=== PATIENT | male | born 1935 | race Caucasian/White ===

== ENCOUNTER 2016-04-16 19:20 | Emergency (ER) | payer MEDICARE ==
[2016-04-16 19:32] VITALS: TEMP 97.3; BMI 25.0
--- NOTE | 2016-04-16 19:47 | EDPRACDOC ---
- General Information Chief Complaint: Upper Extremity Injury Stated Complaint: PAIN/SWELLING RT ARM Time Seen by Provider: 04/16/16 19:38 Mode of Arrival: Car Home Medications: Home Medications Ranitidine [Zantac] 20 ml PO HS #600 02/17/16 Cephalexin Monohydrate [Keflex] 500 mg PO Q6H #20 cap 04/16/16 Hydrocodone Bit/Acetaminophen [Hydrocodon-Acetaminophen 5-325] 1 tab PO Q6 PRN # 15 tab 04/16/16 Warfarin Sodium [Coumadin] 1 mg PO DAILY 04/16/16 Allergies/Adverse Reactions: Allergies Allergy/AdvReac Type Severity Reaction Status Date / Time cinoxacin [From Cinobac] Allergy Rash-Genera Verified 04/16/16 19:33 lized ciprofloxacin [From Cipro] Allergy Rash-Genera Verified 04/16/16 19:33 lized ciprofloxacin HCl Allergy Rash-Genera Verified 04/16/16 19:33 [From Cipro] lized doxycycline Allergy Rash-Genera Verified 04/16/16 19:33 lized nitrofurantoin Allergy Rash-Genera Verified 04/16/16 19:33 macrocrystalline lized [From Macrodantin] tamsulosin Allergy Unknown Verified 04/16/16 19:33 trimethoprim [From Proloprim] Allergy Rash-Genera Verified 04/16/16 19:33 lized - History of Present Illness Onset: 3 days HPI: PT COMPLAINS OF SEVERE THROBBING PAIN IN RIGHT WRIST WORSENING X 3 DAYS, STATES "I GOT GOUT", PT HAS HX OF SAME AFFECTING SAME WRIST. PT WENT TO URGENT CARE, STATES THAT HE "GOT HOT AND VOMITED", STATES UC DID AN X-RAY AND TOLD HIM HE HAD A "BLOCKAGE" AND REFERRED HIM TO THE ED. PT STATES NO BM X 3 DAYS. 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 SOLITARY RIGHT KIDNEY. 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 Wilkerson. Nephrectomy.) - Family Medical History Reports: Cancer (Mother: cancer of unknown type), Stroke (Brother), Cardiac Disorders (Father: "circulation problem"). Denies: Hypertension, Diabetes - Social Medical History Smoking Status: Former smoker Social History: Denies: Substance Use Disorder ETOH: None Substance Abuse: None EDM Review of Systems - Review of Systems Constitutional: negative: Chills, Fever Eyes: negative: Blurred Vision, Double Vision Ears: negative: Drainage Throat: negative: Pain Nose: negative: Congestion, Discharge Respiratory: negative: Cough, Shortness of Breath, Wheezing Cardiovascular: negative: Chest Pain, Palpitations Gastrointestinal: Constipation, Nausea, Vomiting. negative: Diarrhea, Pain Genitourinary: negative: Dysuria, Frequency Neurological: negative: Dizziness, Headache, Numbness, Weakness Musculoskeletal: Wrist Integumentary: No Symptoms Reported - Physical Exam Constitutional: Alert (Awake), No apparent distress Oriented to: Time, Person, Place Last recorded Vital Signs: Last Vital Signs Temp 97.3 F L 04/16/16 19:25 Pulse 73 04/16/16 19:25 Resp 20 04/16/16 19:25 BP 172/77 04/16/16 19:25 Pulse Ox 98 04/16/16 19:25 Oxygen Pulse Oxygen Saturation 98 O2 Device Oxygen Flow Rate Fraction of Inspired Oxygen ( FIO2) - HEENT Head: Normal ( normocephalic) Eye Exam: Normal (PERRL, EOMI, Sclera white) Oropharynx: Normal (Pharynx:Moist without exudate,Gums-no swelling) Tympanic Membrane: Normal ENT EAC: Normal TMJ: Normal Nose: No Symptoms Reported (septum midline) Neck: Normal (FROM, trachea at midline) - Respiratory/Cardiovascular Respiratory: Normal - CTA (BBS clear to auscultation without adventitious sounds ) Cardiovascular: Normal (RRR without murmur, gallop or rub) - GI Auscultation: Normal (NABS) Palpation: Normal (Soft,No rebound or guarding, non distended) Tenderness: Non tender Lomas's Sign: Negative - Musculoskeletal Back: Normal (Non-Tender) Extremities: Normal (Normal tone, Pulses 2+ No cyanosis or edema, FROM) - Integumentary Skin: Normal, Warm, Dry Lymphatics: Normal (no adenopathy) - Neurologic Memory Impaired: Normal Motor Function: Normal (Normal tone, Pulses 2+ No cyanosis or edema, FROM) Cranial Nerve: Normal (CN II-X11 intact sensation, strength 5/5) Cerebellar: Normal Mood Description: Normal Perception: Normal ED Wrist Problem Exam Wrist Symptoms: Swelling, Limited ROM, Moderate Tenderness. negative: Deformity Hand Symptoms: Normal. negative: Swelling, Deformity Forearm Symptoms: Normal. negative: Swelling, Deformity Distal Function/Circulation: Normal, Capillary Refill. negative: Motor Deficit , Pulse Deficit, Sensory Deficit - Integumentary Skin: Erythema ED Wrist Problem MDM - Differential Diagnosis Differential Diagnosis: Gout, Rheumatoid, Septic - Re-evaluation Re-evaluation 1 Re-evaluation Time: 20:43 (PAIN IMPROVED) - Results Result Diagrams: 04/16/16 20:40 04/16/16 20:40 Results: 04/16/16 21:13 Laboratory Results - last 24 hr 04/16/16 04/16/16 04/16/16 20:27 20:40 20:40 WBC 8.3 RBC 4.24 L Hgb 13.0 L Hct 39.1 L MCV 92 MCH 30.7 MCHC 33.2 RDW 14.5 Plt Count 117 L MPV 8.0 Neut % (Auto) 79.0 H Lymph % (Auto) 8.2 L [place] % (Auto) 7.7 Eos % (Auto) 4.5 Baso % (Auto) 0.6 Absolute Neuts (auto) 6.56 Absolute Lymphs (auto) 0.66 Sodium 139 Potassium 4.3 Chloride 101 Carbon Dioxide 25 Anion Gap 17 H BUN 36 H Creatinine 2.30 H Estimated GFR (MDRD) 27 L Glucose 126 H Calculated Osmolality 278 Calcium 10.3 H Total Bilirubin 0.8 AST 34 ALT 36 Alkaline Phosphatase 124 Total Protein 9.2 H Albumin 4.3 Urine Color Yellow Urine Clarity Cldy Urine pH 7.0 Ur Specific Edwards 1.005 Urine Protein 2+ H Urine Glucose (UA) Neg Urine Ketones Neg Urine Occult Blood 1+ H Urine Nitrite Pos H Urine Bilirubin Neg Urine Urobilinogen <2.0 Ur Leukocyte Esterase 2+ H Urine RBC 20-30 H Urine WBC Tntc H Urine WBC Clumps Present H Urine Bacteria Few - Diagnostic Imaging AAS Image interpreted by: Radiologist Diagnostic Imaging Comments: DG ABDOMEN ACUTE W/ 1V CHEST COMPARISON: None. FINDINGS: Right ureteral stent is seen in appropriate position. The bowel gas pattern is normal. Probable tiny less than 1 cm radiopaque calculi noted in lower pole of right kidney, although kidneys partially obscured by overlying bowel gas. Numerous tiny calcified gallstones seen. No evidence of free intraperitoneal air. Heart size is normal. Both lungs are clear. No evidence of pneumothorax or pleural effusion. IMPRESSION: Right ureteral stent in appropriate position. Probable tiny right renal calculi. Cholelithiasis. Normal bowel gas pattern. No active cardiopulmonary disease. - Additional Information Additional Information: OLD RECORDS REVIEWED, BUN/CR AT BASELINE. Decision Time to Discharge: 21:13 - Departure Disposition: Home Condition: Stable Final Diagnosis: Acute gout of right wrist Qualifiers: Gout etiology: unspecified cause Qualified Code(s): M10.9 - Gout, unspecified UTI (urinary tract infection) Qualifiers: Urinary tract infection type: acute cystitis Hematuria presence: without hematuria Qualified Code(s): N30.00 - Acute cystitis without hematuria Instructions: Urinary Tract Infection in Men (ED), Gout (ED) Education/Counseling Given To: Patient Education/Counseling Given Regarding: Diagnosis, Treatment, Prognosis, Follow Up Referrals: Dimas Simon II, MD [Primary Care Provider] - One Week Prescriptions: New Cephalexin Monohydrate [Keflex] 500 mg PO Q6H #20 cap Hydrocodone Bit/Acetaminophen [Hydrocodon-Acetaminophen 5-325] 1 tab PO Q6 PRN #15 tab PRN Reason: Pain Continue Ranitidine [Zantac] 20 ml PO HS #600 Warfarin Sodium [Coumadin] 1 mg PO DAILY Additional Instructions: APPLY WARM COMPRESSES TO YOUR WRIST 20 MINS AT A TIME 4 - 5 TIMES DAILY NEEDED FOR PAIN AND SWELLING.
[2016-04-16] MEDS ORDERED: COLCHICINE 0.6 MG TAB PO ONE (19:48)
[2016-04-16] MEDS ORDERED: NS 1,000 ML IV ONE (19:48)
[2016-04-16] MEDS ORDERED: ONDANSETRON HCL 4 MG/2 ML VIAL IV ONE (19:48)
[2016-04-16] MEDS ORDERED: MORPHINE 4 MG/ML INJECTION IV ONE (19:48)
--- NOTE | 2016-04-16 20:31 | DIRPT ---
CLINICAL DATA: Abdominal pain and vomiting. Constipation. EXAM: DG ABDOMEN ACUTE W/ 1V CHEST COMPARISON: None. FINDINGS: Right ureteral stent is seen in appropriate position. The bowel gas pattern is normal. Probable tiny less than 1 cm radiopaque calculi noted in lower pole of right kidney, although kidneys partially obscured by overlying bowel gas. Numerous tiny calcified gallstones seen. No evidence of free intraperitoneal air. Heart size is normal. Both lungs are clear. No evidence of pneumothorax or pleural effusion. IMPRESSION: Right ureteral stent in appropriate position. Probable tiny right renal calculi. Cholelithiasis. Normal bowel gas pattern. No active cardiopulmonary disease. Electronically Signed By: Dimas Delgado M.D. On: 04/16/2016 20:29
[2016-04-16 20:50] LABS: AUTOMATED BASOPHIL 0.6 % (0-2); AUTOMATED EOSINOPHIL 4.5 % (0-5); AUTOMATED LYMPH 8.2 % (17-44); AUTOMATED MONOCYTE 7.7 % (3-10)
[2016-04-16 21:00] LABS: BLOOD UREA NITROGEN 36 MG/DL (9-20); CALCIUM 10.3 MG/DL (8.4-10.2); CALCULATED OSMOLALITY 278 MOs/Kg (270-290); CHLORIDE 101 mEq/L (98-107); GLUCOSE 126 MG/DL (70-99); SODIUM LEVEL 139 mEq/L (137-146); TOTAL PROTEIN 9.2 G/DL (6.3-8.2)
[2016-04-16 21:00] LABS: LEUKOCYTES/URINE 2+ (NEGATIVE); RBC/URINE 20-30 (0-2); URINE OCCULT BLOOD 1+ (NEG/TRACE); WBC/URINE TNTC (0-2)
[2016-04-16 21:01] LABS: NITRITE/URINE POS (NEGATIVE)
[2016-04-16 22:04] VITALS: BP 142/74; PULSE 68
== END 2016-04-16 22:00 | disposition home or self-care (01) ==
LOC: ED 19:20
DX: M10.9 Gout, unspecified (principal); N30.00 Acute cystitis without hematuria; I82.509 Chronic embolism and thrombosis of unspecified deep veins of unspecified lower extremity; Z79.01 Long term (current) use of anticoagulants
CPT/HCPCS: 36415; 74022; 80053; 81001; 85025; 87077; 87086; 87186; 96361; 96374; 96375; 99284; A9270; J2270; J2405; J3490